=== PATIENT | female | born 1955 | race Caucasian/White ===

== ENCOUNTER 2019-03-14 08:47 | Outpatient (CLI) | payer OTHER ==
--- NOTE | 2019-03-14 11:17 | MMO ---
Bilateral MAMMO Bilat Diag DDI+COURTNEY. CLINICAL HISTORY: Patient is 63 years old and is seen for diagnostic exam,lump or thickening and pain in the right breast. The patient has the following family history of breast cancer: aunt. The patient has a history of other cancer. VIEWS: The views performed were: bilateral craniocaudal with tomosynthesis; bilateral mediolateral oblique with tomosynthesis; and bilateral mediolateral with tomosynthesis. FILMS COMPARED: The present examination has been compared to prior imaging studies performed at [facility] on 12/01/2016, 12/11/2016 and 03/14/2019. MAMMOGRAM FINDINGS: The breasts are heterogeneously dense, which could obscure a lesion on mammography. Finding 1: There is global asymmetry with associated skin thickening seen in the upper-outer region of the right breast. There is suggestion of several small masses in the region of global asymmetry with largest measuring 3 cm. Ultrasound shows several small masses with associated edema and skin thickening as well. Finding 2: There is an area of axillary adenopathy seen on the right side. In the left breast, there are no suspicious masses, calcifications or areas of architectural distortion. IMPRESSION: FINDING 1: GLOBAL ASYMMETRY IN THE RIGHT BREAST IS SUSPICIOUS. AN ULTRASOUND-GUIDED BREAST BIOPSY IS RECOMMENDED. FINDINGS AND RECOMMENDATION WERE DISCUSSED WITH DR. SPENCER BURR'S NURSE ON 03/14/19 AT 10:37 HOURS. FINDING 2: AREA OF AXILLARY ADENOPATHY IN THE RIGHT BREAST IS SUSPICIOUS. AN ULTRASOUND-GUIDED FNA or BIOPSY IS RECOMMENDED. 3BTHE RESULTS OF THIS EXAM WERE SENT TO THE PATIENT.0B ACR BI-RADS Category 4 - Suspicious abnormality - biopsy should be considered MAMMOGRAPHY NOTE: 1. A negative mammogram report should not delay a biopsy if a dominant of clinically suspicious mass is present. 2. Approximately 10% to 15% of breast cancers are not detected by mammography. 3. Adenosis and dense breasts may obscure an underlying neoplasm. Reported by: CECILIA ROY MD Electonically Signed: [id number]
--- NOTE | 2019-03-14 12:01 | ULT ---
LIMITED ULTRASOUND RIGHT BREAST: Date: 03/14/19 HISTORY: Patient with area of redness and palpable abnormality right breast with associated mammographic abnor mality. FINDINGS: Imaging of the right breast from the 9 o'clock to 12 o'clock position was performed, in addition to u ltrasound of the right axilla. There is diffuse skin thickening and edema within the soft tissues of the breast in these regions. There are hypoechoic mass-like areas also seen within the upper inner ri ght breast and on real-time imaging appear contiguous although separate discrete areas are measurable , with the largest hypoechoic area measuring approximately 1.6 cm in maximal dimensions. On mammographic evaluation, enlarged lymph nodes are seen in the right axilla. Sonographic evaluation of the right axilla demonstrates two hypoechoic masses in the right axilla without echogenic area ce ntrally. Findings are likely related to abnormal lymph nodes. Largest lymph node measures 2.4 cm x 1. 8 cm x 1.7 cm, with second lymph node measuring 2.5 cm x 1.5 cm x 1.8 cm. IMPRESSION: 1. BI-RADS Category 4 - Suspicious abnormality. Biopsy is recommended. Masses in the right breast ar e amenable to ultrasound guided right breast biopsy. Lymph nodes within the right axilla are also jose luis nable to fine needle aspiration. 2. Given the constellation of the above findings and history of no improvement while on antibiotics, neoplastic process such as inflammatory breast carcinoma is a possibility. Infection with associated reactive lymph nodes, while thought less likely, is also a possibility. These findings were reviewed with the patient at this time. Above findings were discussed with Carleen, nurse for Dr. Menchaca, on 03/14/19 at 1037 hours. Again, ult rasound guided breast biopsy was recommended. POS: OFF
--- NOTE | 2019-03-14 16:39 | BD ---
DEXA BONE DENSITY SCAN: DATE: 03/14/2019. HISTORY: Postmenopausal female undergoing screening for osteoporosis. FINDINGS: Lumbar Spine: BMD (g/cm2) L1 0.743 T-Score: -2.2 L2 0.805 T-Score: -2.0 L3 0.810 T-Score: -2.5 L4 0.937 T-Score: -1.1 L1-L4 0.835 T-Score: -1.9 Femoral Neck: 0.754 T-Score: -0.9 Total Femur: 0.829 T-Score: -0.9 The FRAX-WHO fracture risk assessment tool reports a 10-year fracture risk for a major osteoporotic f racture at 11% and for a hip fracture at 0.6% in an untreated patient. Impression: There is osteopenia within the lumbar spine, correlating with a moderately increased risk for fractur e. POS: [facility]
== END 2019-03-14 08:48 | disposition home or self-care (01) ==
LOC: BICMAMMO 08:47
PROVIDERS: ATTEND Psychiatry & Neurology Psychiatry
DX: Z13.820 Encounter for screening for osteoporosis (principal); N61.0 Mastitis without abscess; M85.88 Other specified disorders of bone density and structure, other site; N64.89 Other specified disorders of breast; Z80.3 Family history of malignant neoplasm of breast
CPT/HCPCS: 77066; 77080; G0279

== ENCOUNTER → 2019-03-18 | Day surgery (SDC) | payer OTHER ==
--- NOTE | 2019-03-18 14:09 | MMO ---
Right Breast MAMMO Unilat Diag DDI RT. CLINICAL HISTORY: Patient is 63 years old and is seen for diagnostic exam. VIEWS: The views performed were: . FILMS COMPARED: The present examination has been compared to prior imaging studies performed at [facility] on 12/01/2016, 12/11/2016 and 03/14/2019. MAMMOGRAM FINDINGS: Right biopsy clip is appropriately located. IMPRESSION: FINDING IN THE RIGHT BREAST IS CONFIRMED UTILIZING POST PROCEDURE MAMMOGRAM. THE RESULTS OF THIS EXAM WERE SENT TO THE PATIENT. MAMMOGRAPHY NOTE: 1. A negative mammogram report should not delay a biopsy if a dominant of clinically suspicious mass is present. 2. Approximately 10% to 15% of breast cancers are not detected by mammography. 3. Adenosis and dense breasts may obscure an underlying neoplasm. Reported by: KRIS OGLESBY MD Electonically Signed: [id number]
--- NOTE | 2019-03-18 14:57 | ULT ---
EXAM: RIGHT BREAST BIOPSY WITH ULTRASOUND GUIDANCE RIGHT AXILLARY LYMPH NODE BIOPSY WITH ULTRASOUND GUIDANCE: 03/18/19 HISTORY: Firm mass involving the right breast with erythema and skin thickening. Evaluate for possible inflammatory breast CA/breast cancer. FINDINGS: RIGHT BREAST ULTRASOUND: Successful right breast ultrasound. A total of four 14 gauge core biopsy samples were obtained. Sampl e was placed directly in formalin. Post biopsy clip was placed. Post biopsy mammogram was performed. Clip is in the right breast. RIGHT AXILLARY ULTRASOUND: A total of four 18 gauge core biopsy samples were obtained of the axillary lymph node. Two samples of each lymph node were obtained. Samples were placed directly in formalin. TECHNIQUE: Consent obtained to perform a right breast ultrasound guided biopsy. Right breast is prepped and drap ed in the sterile fashion. 1% lidocaine, buffered with sodium bicarbonate was used for local anesthes ia. Using ultrasound guidance, 14 gauge biopsy needle was advanced into the lesion. Total of four reyes ples were obtained and placed directly in formalin. After performing the ultrasound biopsy of the breast, the right axilla was prepped and draped in the sterile fashion. 1% lidocaine, buffered with sodium bicarbonate was used for local anesthesia. Total of four 18 gauge core biopsy samples were obtained. Two samples were obtained of the lymph node marke d #1 and two samples of lymph node marked #2. Samples were placed directly in formalin. There were no immediate or postprocedure complication. IMPRESSION: Successful right breast and right axillary ultrasound guided biopsy. POS: [facility]
== END ==
LOC: BICULT 12:49
PROVIDERS: ATTEND Psychiatry & Neurology Psychiatry
PROC: 0HBT3ZX Excision of Right Breast, Percutaneous Approach, Diagnostic (ICD-10-PCS; principal; 2019-03-18)
PROC: 07B53ZX Excision of Right Axillary Lymphatic, Percutaneous Approach, Diagnostic (ICD-10-PCS; principal; 2019-03-18)
DX: C50.411 Malignant neoplasm of upper-outer quadrant of right female breast (principal); C77.3 Secondary and unspecified malignant neoplasm of axilla and upper limb lymph nodes
CPT/HCPCS: 19083; 38505; 88305; 88341; 88342; 88361

== ENCOUNTER 2019-04-02 11:33 | Day surgery (SDC) | payer SELFPAY ==
[2019-04-01 11:10] VITALS: BMI 36.0
[2019-04-02] MEDS ORDERED: Fentanyl 100 MCG/2 ML VIAL ONE (13:13)
[2019-04-02] MEDS ORDERED: Lidocaine 2% PF 5 ML VIAL ONE (13:19)
[2019-04-02] MEDS ORDERED: Bupivacaine/Epinephrine 0.25% 30 ML VIAL ONE (13:19)
--- NOTE | 2019-04-02 15:21 | RAD ---
AP CHEST: Date: 04/02/19 INDICATION: MediPort placement. FINDINGS: MediPort catheter has been placed via the left jugular. The tip overlies the SVC and appears in adequ ate position. The lung corona appear clear. No vascular congestion. Heart and mediastinum unremarkable. IMPRESSION: No acute process. POS: [facility]
[2019-04-02] MEDS ORDERED: Lidocaine 1% PF 5 ML VIAL ONE (16:43)
[2019-04-02] MEDS ORDERED: PROPOFOL 200 MG/20 ML VIAL ONE (16:43)
[2019-04-02] MEDS ORDERED: Dexamethasone 20 MG/5 ML VIAL ONE (16:43)
[2019-04-02] MEDS ORDERED: Ondansetron PF 4 MG/2 ML Vial ONE (16:43)
--- NOTE | 2019-04-03 10:57 | OP ---
DATE OF PROCEDURE: 04/02/2019 PREOPERATIVE DIAGNOSIS: Inflammatory breast cancer. POSTOPERATIVE DIAGNOSIS: Inflammatory breast cancer. PROCEDURE PERFORMED: Tunnel central line with subcutaneous port (MediPort CT injectable). ANESTHESIA: General. ESTIMATED BLOOD LOSS: Minimal. COMPLICATIONS: None. SPECIMEN: None. FINDINGS: Tip of the catheter was at the atriocaval junction. DESCRIPTION OF PROCEDURE: The patient was taken to the operating room and laid supine on the operating room table. After general anesthetic was obtained. The bilateral neck and chest were prepped and draped in a sterile fashion. Local anesthetic infiltrated over the left internal jugular vein. The internal jugular vein was cannulated using a 22-gauge finder needle followed by a Seldinger needle. Wire was passed into the superior vena cava under fluoro guidance. A small edgar was made at the wire entrance site. A separate 3 cm incision was made in the left upper chest. Subcutaneous pocket was made below the lower incision. Tubing for the MediPort tunneled from the inferior to superior incision. Introducer sheath was placed over the wire into the superior vena cava. The dilator and wire removed. The end of the catheter was sewn into the sheath. The sheath was peeled away. The tip of the catheter was at the atriocaval junction. MediPort tubing cut to fit the MediPort with lower incision, connected to the MediPort. The MediPort was sewn to the chest wall in the subcutaneous pocket using Prolene. MediPort flushed and natacha blood without difficulty. It was flushed with a heparin flush. All incisions were irrigated and closed using 3-0 Vicryl, 4-0 Monocryl, and Dermabond. The patient was sent to Recovery in stable condition. All sponge counts, needle counts and lap counts are correct. Job ID: [id number]
== END 2019-04-02 16:10 | disposition home or self-care (01) ==
LOC: SDC 11:33
PROVIDERS: ATTEND Surgery
PROC: 02HV33Z Insertion of Infusion Device into Superior Vena Cava, Percutaneous Approach (ICD-10-PCS; principal; 2019-04-02)
DX: C50.411 Malignant neoplasm of upper-outer quadrant of right female breast (principal); C77.3 Secondary and unspecified malignant neoplasm of axilla and upper limb lymph nodes; G47.00 Insomnia, unspecified; G47.30 Sleep apnea, unspecified; I10 Essential (primary) hypertension; J45.909 Unspecified asthma, uncomplicated; Z17.0 Estrogen receptor positive status [ER+]; Z87.891 Personal history of nicotine dependence; Z79.899 Other long term (current) drug therapy; Z88.2 Allergy status to sulfonamides; Z88.8 Allergy status to other drugs, medicaments and biological substances
CPT/HCPCS: 71045; J0690; J1100; J1642; J2001; J2405; J2704; J3010

== ENCOUNTER 2019-04-03 13:40 | Outpatient (CLI) | payer OTHER | END 2019-04-03 13:41 | disposition home or self-care (01) | LOC: ULT 13:40 | PROVIDERS: ATTEND Internal Medicine Hematology & Oncology | DX: Z51.11 Encounter for antineoplastic chemotherapy (principal); C50.411 Malignant neoplasm of upper-outer quadrant of right female breast; I34.0 Nonrheumatic mitral (valve) insufficiency | CPT/HCPCS: 93306 ==

== ENCOUNTER 2019-04-04 08:19 | Outpatient (CLI) | payer OTHER ==
--- NOTE | 2019-04-04 10:06 | CT ---
Head CT with and without contrast: 04/04/2019 COMPARISON: None HISTORY: History of breast cancer, evaluate for staging TECHNIQUE: Axial CT imaging at 5 mm intervals from skull base through vertex with and without IV cont rast FINDINGS: The imaged paranasal sinuses/mastoid air cells are well aerated. No displaced calvarial fra cture. The noncontrast enhanced imaging demonstrates no intracranial hemorrhage, midline shift, mass effect, or ventricular enlargement. The postcontrast imaging demonstrates no discrete abnormal enhancement within the brain parenchyma. IMPRESSION: Unremarkable contrast enhanced head CT.
--- NOTE | 2019-04-04 10:16 | PET ---
Nuclear medicine FDG PET/CT: (Positron emission tomography and computed tomography) DATE: 04/04/2019 HISTORY: 63-year-old female with malignant neoplasm of upper outer quadrant of right female breast. Initial st aging. COMPARISON: none TECHNIQUE: IV injection of F-18 fluorodeoxyglucose (FDG) dose: 11.2 mCi. PET scan and attenuation correction CT performed from skull base to proximal thighs. FINDINGS: SUV (standard uptake values) numbers given are maximum SUVs. QCLR used. Right level 5B supraclavicular 1.5 x 2.5 cm lymph node SUV 18.4. Multiple significantly enlarged right axillary lymph nodes. Greatest SUV 22.4. Slightly enlarged subcentimeter right subpectoral lymph node SUV 8.1. Large right breast lesion SUV 23.9. Uncertain how much of this represents neoplastic tumor and how mu ch represents postsurgical change, if any. Diffuse edema throughout much of the right breast and skin of right breast with SUV 3.2. This could r epresent inflammatory breast cancer, or postradiation change, if there has been radiation. Bariatric surgery changes at stomach. No evidence of metastatic disease in the abdominal cavity, pelvic cavity, or upper neck. IMPRESSION: 1. Large right breast lesion with SUV 23.9. See above comments. 2. Malignant metastatic right lymphadenopathy: Axillary, supraclavicular, and subpectoral (mostly axi llary). 3. Diffuse edema and skin thickening of the right breast. Recommend clinical correlation for possibil ity of inflammatory breast cancer.
[2019-04-04] MEDS ORDERED: Iopamidol 370 76% 100 ML VIAL ONE (12:45)
== END 2019-04-04 08:20 | disposition home or self-care (01) ==
LOC: PET 08:19 → CT 08:20
PROVIDERS: ATTEND Internal Medicine Hematology & Oncology
DX: C50.411 Malignant neoplasm of upper-outer quadrant of right female breast (principal); N64.89 Other specified disorders of breast; C77.3 Secondary and unspecified malignant neoplasm of axilla and upper limb lymph nodes; C79.89 Secondary malignant neoplasm of other specified sites
CPT/HCPCS: 70470; 78815; A9552; Q9967

== ENCOUNTER 2020-04-14 08:58 | Outpatient (CLI) | payer OTHER ==
--- NOTE | 2020-04-14 09:25 | BD ---
EXAM: Bone densitometry using DEXA HISTORY: 64 yo female. Screening for postmenopausal osteoporosis FINDINGS: L1--bone mineral density 0.714 g/sq cm; T score -2.5 ; Z score -1.1 L2--bone mineral density 0.788 g/sq cm; T score -2.2 ; Z score -0.6 L3--bone mineral density 0.722 g/sq cm; T score -3.3 ; Z score -1.7 L4--bone mineral density 0.803 g/sq cm; T score -2.3 ; Z score -0.7 Total L1-L4--bone mineral density 0.759 g/sq cm; T score -2.6 ; Z score -1.0 Left femoral neck--bone mineral density0.716; T score -1.2 ; Z score 0.2 Total proximal left femur--bone mineral density 0.849; T score -0.8 ; Z score 0.3 There has been interval reduction of 9% in the BMD of the lumbar spine and an improvement of 2.4% in the BMD of the proximal femur since 03/14/2019. IMPRESSION: Osteoporosis
== END 2020-04-14 08:59 | disposition home or self-care (01) ==
LOC: BICMAMMO 08:58
PROVIDERS: ATTEND Nurse Practitioner Adult Health
DX: Z13.820 Encounter for screening for osteoporosis (principal); Z78.0 Asymptomatic menopausal state; M81.0 Age-related osteoporosis without current pathological fracture
CPT/HCPCS: 77080

== ENCOUNTER 2024-01-04 09:09 | Outpatient (CLI) | payer OTHER | END 2024-01-04 09:10 | disposition home or self-care (01) | LOC: DTY/OP 09:09 | PROVIDERS: ATTEND Family Medicine | DX: R63.5 Abnormal weight gain (principal); Z68.34 Body mass index [BMI] 34.0-34.9, adult | CPT/HCPCS: 97802 ==